=== PATIENT | female | born 1985 | race Caucasian/White ===

== ENCOUNTER 2022-08-22 10:50 | Emergency (ER) | payer OTHER ==
[~2022-08-22] VITALS: Ht 153.7 cm; Wt 65.8 kg
[~2022-08-22 10:50] MED LIST: FERR-252 PO; IBUP-974 PO; PREN-385 PO
[2022-08-22 11:00] VITALS: BP 127/97
--- NOTE | 2022-08-22 11:15 | NUR ---
BIB SELF C/O RIGHT NECK PAIN X 3 DAYS. DENIES TRAUMA. PT STATED HEADACHE 1 WEEK AGO. DENIES PAIN AT THIS TIME. PMH: DENIES
[2022-08-22] MEDS ORDERED: KETOROLAC 30 MG/ML VIAL IM ONE (12:40)
[2022-08-22] MEDS ORDERED: IBUP-2213 PO (13:35)
[2022-08-22] MEDS ORDERED: ACET-8001 PO (13:35)
[2022-08-22 13:53] VITALS: BP 112/87
--- NOTE | 2022-08-22 13:53 | NUR ---
Patient discharged with v/s stable. Written and verbal after care instructions given and explained. Patient alert, oriented and verbalized understanding of instructions. Ambulatory with steady gait. All questions addressed prior to discharge. ID band removed. Patient advised to follow up with PMD. Rx of EXCEDRIN MIGRAINE CAPIET, IBUPROFEN given. Patient educated on indication of medication including possible reaction and side effects. Opportunity to ask questions provided and answered.
== END 2022-08-22 13:53 | disposition home or self-care (01) ==
LOC: MED 10:50
DX: G44.209 Tension-type headache, unspecified, not intractable (principal); R20.0 Anesthesia of skin
CPT/HCPCS: 72040; 81025; 96372; 99283; J1885